=== PATIENT | male | born 2000 | race Caucasian/White ===

== ENCOUNTER 2021-03-18 14:40 | Emergency (ER) | payer SELFPAY ==
[~2021-03-18] VITALS: Ht 170.2 cm; Wt 77.0 kg
[~2021-03-18 14:40] MED LIST: BACTRIM DS1 TAB OR; CEPHALEXIN250 MG OR; CEPHALEXIN500 MG OR; PREDNISONE10 MG OR
[2021-03-18 16:11] VITALS: BP 112/78
== END 2021-03-18 16:13 | disposition home or self-care (01) | DRG 563 ==
LOC: ED 14:40
DX: S93.402A Sprain of unspecified ligament of left ankle, initial encounter (principal); F41.9 Anxiety disorder, unspecified; F17.210 Nicotine dependence, cigarettes, uncomplicated; X50.0XXA Overexertion from strenuous movement or load, initial encounter; Y93.67 Activity, basketball

== ENCOUNTER 2022-05-03 12:31 | Emergency (ER) | payer SELFPAY ==
[~2022-05-03] VITALS: Ht 170.2 cm; Wt 109.0 kg
[2022-05-03 13:34] LABS: IMMATURE GRANULOCYTES 0.5 % (0.0-5.0); MEAN CORPUSCULAR HGB 30.9 pG CALC (26.0-32.0); MEAN CORPUSCULAR HGB CONC 33.6 g/dL CAL (32.0-36.0); NEUT# 7.58 thou/uL (1.82-7.42); RED BLOOD COUNT 4.99 mill/uL (4.70-6.10); RED CELL DISTRI WIDTH 11.8 % (11.5-15.5)
[2022-05-03 13:49] LABS: ALBUMIN 4.3 g/dL (3.2-5.0); ALKALINE PHOSPHATASE 66 u/l (38-126); ANION GAP 11 (6-22 (CALC)); BILIRUBIN, TOTAL 0.5 mg/dL (0.0-1.4); BUN 10 mg/dL (9-20); BUN/CREATININE RATIO 12 (12-20 (CALC)); CARBON DIOXIDE 24 mmol/l (22-30); CHLORIDE 104 mmol/l (95-108); CREATININE 0.9 mg/dL (0.7-1.3); GFR FOR AFR.AMER. > 60 ML/MIN (>=60 (CALC)); GFR OTHER RACES > 60 ML/MIN (>=60 (CALC)); HEMATOCRIT 45.9 % (39.0-50.0); HEMOGLOBIN 15.4 g/dl (14.0-18.0); LIPASE 388 u/l (23-300); POTASSIUM 3.6 mmol/l (3.5-5.1); SGOT/AST 25 u/l (17-59); SODIUM 135 mmol/l (137-146); TOTAL PROTEIN 7.2 g/dL (6.3-8.2)
[2022-05-03 14:24] LABS: URINE BILIRUBIN - DIPSTICK NEGATIVE (NEGATIVE); URINE BLOOD DIPSTICK NEGATIVE (NEGATIVE); URINE COLOR YELLOW; URINE GLUCOSE - DIPSTICK NEGATIVE (NEGATIVE); URINE KETONE NEGATIVE (NEGATIVE); URINE LEUK ESTERASE NEGATIVE (NEGATIVE); URINE PH 7.5 (4.5-8.0); URINE PROTEIN - DIPSTICK NEGATIVE (NEG-TRACE); URINE SPECIFIC GRAVITY 1.015; URINE UROBILINOGEN - DIPSTICK 0.2 E.U./dL (0.2)
[2022-05-03 14:25] LABS: URINE NITRITE - DIPSTICK NEGATIVE (Negative)
[2022-05-03] MEDS ORDERED: NAPROXEN500 MG PO (14:31)
[2022-05-03] MEDS ORDERED: PAXLOVID PO (14:31)
[2022-05-03] MEDS ORDERED: PENICILLN VK500 MG PO (14:38)
[2022-05-03 14:43] VITALS: BP 118/64
== END 2022-05-03 14:53 | disposition home or self-care (01) | DRG 179 ==
LOC: ED 12:31
PROVIDERS: Nurse Practitioner
DX: U07.1 COVID-19 (principal); K08.89 Other specified disorders of teeth and supporting structures; H92.03 Otalgia, bilateral; R10.9 Unspecified abdominal pain; R35.0 Frequency of micturition; F41.9 Anxiety disorder, unspecified; F17.200 Nicotine dependence, unspecified, uncomplicated

== ENCOUNTER 2022-05-15 03:21 | Inpatient (IN) | payer SELFPAY ==
[~2022-05-15] VITALS: Ht 170.2 cm; Wt 90.9 kg
[~2022-05-15 03:21] MED LIST changes: +NAPROXEN500 MG PO; +PAXLOVID PO; +PENICILLN VK500 MG PO
[2022-05-15 03:31] VITALS: BP 130/81
[2022-05-15 04:33] LABS: HEMATOCRIT 53.8 % (39.0-50.0); HEMOGLOBIN 19.6 g/dl (14.0-18.0); IMMATURE GRANULOCYTES 0.8 % (0.0-5.0); MEAN CELL VOLUME 83.8 fL CALC (80.0-100.0); MEAN CORPUSCULAR HGB 30.5 pG CALC (26.0-32.0); MEAN CORPUSCULAR HGB CONC 36.4 g/dL CAL (32.0-36.0); NEUT# 9.04 thou/uL (1.82-7.42); RED BLOOD COUNT 6.42 mill/uL (4.70-6.10); RED CELL DISTRI WIDTH 11.3 % (11.5-15.5)
[2022-05-15 04:49] LABS: ALKALINE PHOSPHATASE 89 u/l (38-126); BUN 21 mg/dL (9-20); BUN/CREATININE RATIO 20 (12-20 (CALC)); CREATININE 1.1 mg/dL (0.7-1.3); GFR FOR AFR.AMER. > 60 ML/MIN (>=60 (CALC)); GFR OTHER RACES > 60 ML/MIN (>=60 (CALC)); LIPASE 31 u/l (23-300); SGOT/AST 27 u/l (17-59); SODIUM 137 mmol/l (137-146)
[2022-05-15 04:51] LABS: ANION GAP 19 (6-22 (CALC)); BILIRUBIN, TOTAL 1.6 mg/dL (0.0-1.4); CARBON DIOXIDE 36 mmol/l (22-30); CHLORIDE 85 mmol/l (95-108); POTASSIUM 2.6 mmol/l (3.5-5.1); TOTAL PROTEIN 8.9 g/dL (6.3-8.2)
[2022-05-15 05:48] LABS: URINE BILIRUBIN - DIPSTICK MODERATE (NEGATIVE); URINE BLOOD DIPSTICK NEGATIVE (NEGATIVE); URINE COLOR YELLOW; URINE GLUCOSE - DIPSTICK NEGATIVE (NEGATIVE); URINE KETONE TRACE mg/dL (NEGATIVE); URINE PH 6.5 (4.5-8.0); URINE PROTEIN - DIPSTICK 100 mg/dL (NEG-TRACE); URINE SPECIFIC GRAVITY 1.025; URINE UROBILINOGEN - DIPSTICK >=8.0 E.U./dL (0.2)
[2022-05-15 05:49] LABS: URINE NITRITE - DIPSTICK POSITIVE (Negative)
[2022-05-15 05:50] LABS: URINE LEUK ESTERASE NEGATIVE (NEGATIVE)
[2022-05-15 05:54] LABS: URINE BACTERIA MANY hpf; URINE EPITHELIAL CELLS FEW EPI/hpf (0-FEW)
[2022-05-15 06:38] VITALS: BP 140/79
[2022-05-15 10:07] LABS: ANION GAP 14 (6-22 (CALC)); BUN 22 mg/dL (9-20); BUN/CREATININE RATIO 21 (12-20 (CALC)); CARBON DIOXIDE 36 mmol/l (22-30); CHLORIDE 91 mmol/l (95-108); GFR FOR AFR.AMER. > 60 ML/MIN (>=60 (CALC)); GFR OTHER RACES > 60 ML/MIN (>=60 (CALC)); SODIUM 138 mmol/l (137-146)
[2022-05-15 10:13] LABS: POTASSIUM 3.2 mmol/l (3.5-5.1)
[2022-05-15 10:55] VITALS: BP 124/81
[2022-05-15 14:44] VITALS: BP 136/84
[2022-05-15 19:35] VITALS: BP 126/66
[2022-05-16] VITALS (7 sets, daily range): BP systolic 113–136; BP diastolic 69–77
[2022-05-16 05:55] LABS: HEMATOCRIT 48.8 % (39.0-50.0); IMMATURE GRANULOCYTES 0.9 % (0.0-5.0); MEAN CELL VOLUME 88.6 fL CALC (80.0-100.0); MEAN CORPUSCULAR HGB 30.9 pG CALC (26.0-32.0); MEAN CORPUSCULAR HGB CONC 34.8 g/dL CAL (32.0-36.0); NEUT# 5.49 thou/uL (1.82-7.42); RED BLOOD COUNT 5.51 mill/uL (4.70-6.10); RED CELL DISTRI WIDTH 11.6 % (11.5-15.5)
[2022-05-16 06:10] LABS: BUN 15 mg/dL (9-20); BUN/CREATININE RATIO 15 (12-20 (CALC)); CARBON DIOXIDE 36 mmol/l (22-30); CHLORIDE 97 mmol/l (95-108); GFR FOR AFR.AMER. > 60 ML/MIN (>=60 (CALC)); GFR OTHER RACES > 60 ML/MIN (>=60 (CALC)); SODIUM 140 mmol/l (137-146)
[2022-05-16 06:11] LABS: ANION GAP 11 (6-22 (CALC))
[2022-05-17] VITALS (9 sets, daily range): BP systolic 113–130; BP diastolic 59–74
[2022-05-17 05:28] LABS: ANION GAP 11 (6-22 (CALC)); BUN 12 mg/dL (9-20); BUN/CREATININE RATIO 12 (12-20 (CALC)); CARBON DIOXIDE 33 mmol/l (22-30); CHLORIDE 100 mmol/l (95-108); GFR FOR AFR.AMER. > 60 ML/MIN (>=60 (CALC)); GFR OTHER RACES > 60 ML/MIN (>=60 (CALC)); POTASSIUM 3.6 mmol/l (3.5-5.1); SODIUM 141 mmol/l (137-146)
[2022-05-18] VITALS (8 sets, daily range): BP systolic 114–137; BP diastolic 61–82
[2022-05-18 05:16] LABS: HEMATOCRIT 44.1 % (39.0-50.0); HEMOGLOBIN 15.3 g/dl (14.0-18.0); MEAN CORPUSCULAR HGB 31.2 pG CALC (26.0-32.0); MEAN CORPUSCULAR HGB CONC 34.7 g/dL CAL (32.0-36.0); NEUT# 4.22 thou/uL (1.82-7.42); RED BLOOD COUNT 4.9 mill/uL (4.70-6.10); RED CELL DISTRI WIDTH 11.7 % (11.5-15.5)
[2022-05-18 05:30] LABS: ANION GAP 11 (6-22 (CALC)); BUN 12 mg/dL (9-20); BUN/CREATININE RATIO 14 (12-20 (CALC)); CARBON DIOXIDE 27 mmol/l (22-30); CHLORIDE 105 mmol/l (95-108); CREATININE 0.9 mg/dL (0.7-1.3); GFR FOR AFR.AMER. > 60 ML/MIN (>=60 (CALC)); GFR OTHER RACES > 60 ML/MIN (>=60 (CALC)); MAGNESIUM 2.1 mg/dL (1.6-2.3); POTASSIUM 3.7 mmol/l (3.5-5.1); SODIUM 139 mmol/l (137-146)
[2022-05-19] VITALS (8 sets, daily range): BP systolic 97–120; BP diastolic 49–71
[2022-05-19 05:07] LABS: HEMATOCRIT 45.1 % (39.0-50.0); HEMOGLOBIN 15.6 g/dl (14.0-18.0); IMMATURE GRANULOCYTES 0.8 % (0.0-5.0); MEAN CELL VOLUME 89.3 fL CALC (80.0-100.0); MEAN CORPUSCULAR HGB 30.9 pG CALC (26.0-32.0); MEAN CORPUSCULAR HGB CONC 34.6 g/dL CAL (32.0-36.0); NEUT# 3.99 thou/uL (1.82-7.42); RED BLOOD COUNT 5.05 mill/uL (4.70-6.10); RED CELL DISTRI WIDTH 11.6 % (11.5-15.5)
[2022-05-19 05:28] LABS: ANION GAP 10 (6-22 (CALC)); BUN 12 mg/dL (9-20); BUN/CREATININE RATIO 15 (12-20 (CALC)); CARBON DIOXIDE 26 mmol/l (22-30); CHLORIDE 109 mmol/l (95-108); CREATININE 0.8 mg/dL (0.7-1.3); GFR FOR AFR.AMER. > 60 ML/MIN (>=60 (CALC)); GFR OTHER RACES > 60 ML/MIN (>=60 (CALC)); POTASSIUM 4.1 mmol/l (3.5-5.1); SODIUM 141 mmol/l (137-146)
[2022-05-20 00:46] VITALS: BP 115/55
[2022-05-20 05:30] VITALS: BP 96/53
[2022-05-20 06:07] VITALS: BP 103/62
[2022-05-20 10:52] VITALS: BP 106/59
[2022-05-20] MEDS ORDERED: AMOXICILLIN500 M2 PO (12:38)
[2022-05-20] MEDS ORDERED: PANTOPRAZOLE SO40 M1 PO (12:38)
[2022-05-20] MEDS ORDERED: CLARITHROMYCIN500 MG PO (12:38)
== END 2022-05-20 14:35 | disposition home or self-care (01) | DRG 383 ==
LOC: ED 03:21 → MS2 05:49
PROVIDERS: Family Medicine; Internal Medicine; Nurse Practitioner; ADMIT Internal Medicine; ATTEND Internal Medicine
PROC: 0DB98ZX Excision of Duodenum, Via Natural or Artificial Opening Endoscopic, Diagnostic (ICD-10-PCS; principal; 2022-05-17)
PROC: 0DB78ZX Excision of Stomach, Pylorus, Via Natural or Artificial Opening Endoscopic, Diagnostic (ICD-10-PCS; 2022-05-17)
PROC: 0DB58ZX Excision of Esophagus, Via Natural or Artificial Opening Endoscopic, Diagnostic (ICD-10-PCS; 2022-05-17)
DX: K26.9 Duodenal ulcer, unspecified as acute or chronic, without hemorrhage or perforation (principal); U07.1 COVID-19; K21.00 Gastro-esophageal reflux disease with esophagitis, without bleeding; K86.89 Other specified diseases of pancreas; K44.9 Diaphragmatic hernia without obstruction or gangrene; R50.9 Fever, unspecified; E87.6 Hypokalemia; E86.0 Dehydration; E80.6 Other disorders of bilirubin metabolism; F41.9 Anxiety disorder, unspecified; F17.200 Nicotine dependence, unspecified, uncomplicated; B96.81 Helicobacter pylori [H. pylori] as the cause of diseases classified elsewhere; Z83.79 Family history of other diseases of the digestive system
CPT/HCPCS: J1650; Q9967; S0164

== ENCOUNTER 2022-09-29 21:31 | Emergency (ER) | payer SELFPAY ==
[~2022-09-29] VITALS: Ht 188 cm; Wt 90.9 kg
[2022-09-29] VITALS (9 sets, daily range): BP systolic 104–123; BP diastolic 49–70
[~2022-09-29 21:31] MED LIST changes: +AMOXICILLIN500 M2 PO; +CLARITHROMYCIN500 MG PO; +OMEPRAZOLE20 MG PO; +PANTOPRAZOLE SO40 M1 PO
[2022-09-29] MEDS ORDERED: AMOXICILLIN500 MG PO (23:17)
== END 2022-09-29 23:28 | disposition home or self-care (01) | DRG 153 ==
LOC: ED 21:31
DX: J02.9 Acute pharyngitis, unspecified (principal); K04.7 Periapical abscess without sinus; F17.210 Nicotine dependence, cigarettes, uncomplicated